=== PATIENT | male | born 2000 | race Caucasian/White ===

== ENCOUNTER 2022-05-27 21:41 | Emergency (ER) | payer SELFPAY ==
[~2022-05-27] VITALS: Ht 190.5 cm; Wt 89.9 kg
[2022-05-27 21:43] VITALS: BP 136/89
== END 2022-05-28 00:18 | disposition left against medical advice (07) ==
LOC: M ED 21:41
DX: Z53.21 Procedure and treatment not carried out due to patient leaving prior to being seen by health care provider (principal)